=== PATIENT | female | born 1990 | race Caucasian/White ===

== ENCOUNTER → 2018-09-22 | Outpatient (CLI) | payer OTHER | END | disposition home or self-care (01) | LOC: MA 09:00 | PROC: BH02ZZZ Plain Radiography of Bilateral Breasts (ICD-10-PCS; principal; 2018-09-22) | PROC: BH41ZZZ Ultrasonography of Left Breast (ICD-10-PCS; 2018-09-22) | DX: N63.20 Unspecified lump in the left breast, unspecified quadrant (principal) | CPT/HCPCS: 76641; 77066; Q0092 ==